=== PATIENT | male | born 2000 | race Caucasian/White ===

== ENCOUNTER 2022-05-28 14:16 | Emergency (ER) | payer MEDICAID ==
[~2022-05-28] VITALS: Ht 182.9 cm; Wt 87.1 kg
[2022-05-28 14:39] VITALS: BP 138/61
--- NOTE | 2022-05-28 14:40 | NUR ---
BIBS W/ C/O LEFT HAND SWELLING. PT STATES LEFT HAND WAS CRUSHED BY A BOX HE WAS CARRYING AT WORK. PT A/O X4, AMBULATORY.
--- NOTE | 2022-05-28 14:50 | NUR ---
DR VICENTE W/ PT FOR EVAL
--- NOTE | 2022-05-28 15:50 | NUR ---
Patient discharged to home in stable condition. Written and verbal after care instructions given. Patient verbalizes understanding of instruction.
== END 2022-05-28 15:51 | disposition home or self-care (01) ==
LOC: ER 14:26
DX: S60.222A Contusion of left hand, initial encounter (principal); W22.8XXA Striking against or struck by other objects, initial encounter; Y93.89 Activity, other specified; Y92.89 Other specified places as the place of occurrence of the external cause; Y99.8 Other external cause status
CPT/HCPCS: 73130-TC

== ENCOUNTER 2022-12-07 11:26 | Emergency (ER) | payer MEDICAID ==
[~2022-12-07] VITALS: Ht 177.8 cm; Wt 88.5 kg
--- NOTE | 2022-12-07 11:35 | NUR ---
BIBS C/O ABDOMINAL PAIN AND NAUSEA STARTED SUNDAY ON AND OFF. PAIN IS WORSE WHEN EATING, DENIES ANY PAIN AT THE MOMENT. VITALS ARE WITHIN NORMAL LIMITS.
[2022-12-07] MEDS ORDERED: FAMOTIDINE/PF INJ 20 MG/2 ML VIAL IV ONE ×2 (11:44→12:00)
[2022-12-07] MEDS ORDERED: ONDANSETRON HCL/PF 4 MG/2 ML VIAL ONE (11:44)
--- NOTE | 2022-12-07 11:48 | NUR ---
TERRI [employer] 20G. LABS COLLECTED AND SENT.
--- NOTE | 2022-12-07 11:52 | NUR ---
ULTRASOUND AT BEDSIDE
--- NOTE | 2022-12-07 11:58 | NUR ---
URINE COLLECTED AND SENT
[2022-12-07] MEDS ORDERED: ONDANSETRON HCL/PF 4 MG/2 ML VIAL IVP ONE (12:00)
[2022-12-07] MEDS ORDERED: IV NS 0.9% 1,000 ML BAG IV ONE (12:00)
[2022-12-07 12:01] LABS: BASOPHILS % (AUTO) 0.4 % (0.0-2.0); EOSINOPHILS % (AUTO) 0.4 % (0.0-6.0); HEMATOCRIT 45 % (39-51); HEMOGLOBIN 14.7 g/dL (13.5-17.5); LYMPHOCYTES # (AUTO) 1.1 K/uL (0.8-4.8); LYMPHOCYTES % (AUTO) 14.2 % (20.0-44.0); MEAN CORPUSCULAR HGB CONC 33 g/dl (31.0-36.0); MEAN CORPUSCULAR VOLUME 82 fL (80-96); MONOCYTES # (AUTO) 0.2 K/uL (0.1-1.30); MONOCYTES % (AUTO) 3.1 % (2.0-12.0); NEUTROPHILS # (AUTO) 6.1 K/uL (1.8-8.9); NEUTROPHILS % (AUTO) 81.9 % (43.0-81.0); PLATELET COUNT (AUTO) 303 K/uL (150-450); RED BLOOD CELL COUNT(AUTO) 5.48 MIL/uL (4.5-6.0); WHITE BLOOD COUNT (AUTO) 7.5 K/uL (4.3-11.0)
[2022-12-07 12:15] LABS: ALBUMIN 4.7 g/dL (3.4-5.0); BILIRUBIN,DIRECT 0.2 mg/dL (0.0-0.2); BILIRUBIN,TOTAL 0.6 mg/dL (0.2-1.0); CALCIUM, SERUM 9.5 mg/dL (8.5-10.1); POTASSIUM 3.8 mmol/L (3.5-5.1); TOTAL PROTEIN, SERUM 8.4 g/dL (6.4-8.2)
[2022-12-07] MEDS ORDERED: FAMO-131 PO (12:41)
--- NOTE | 2022-12-07 12:51 | NUR ---
IV removed. Catheter intact and site benign. Pressure and 4x4 applied to site. No bleeding noted.Patient discharged to home in stable condition. Written and verbal after care instructions given. Patient verbalizes understanding of instruction.
[2022-12-07 12:53] VITALS: BP 129/86
== END 2022-12-07 12:53 | disposition home or self-care (01) ==
LOC: ER 11:32
DX: R10.13 Epigastric pain (principal); R10.11 Right upper quadrant pain; R11.10 Vomiting, unspecified
CPT/HCPCS: 99285; 96374; 76705; 96361; 96375; 85025; 80048; 83690; 80076; 36415; J3490; J2405; J7030

== ENCOUNTER 2022-12-10 07:47 | Emergency (ER) | payer MEDICAID ==
[~2022-12-10] VITALS: Ht 182.9 cm; Wt 87.1 kg
[~2022-12-10 07:47] MED LIST: FAMO-131 PO
--- NOTE | 2022-12-10 08:07 | NUR ---
Urine Sample collected and sent to lab.
--- NOTE | 2022-12-10 08:10 | NUR ---
C/O GENERALIZED ABDOMINAL PAIN, DIARRHEA AND NAUSEA X 2 DAYS.
--- NOTE | 2022-12-10 08:12 | NUR ---
Dr. Ram at bedside.
--- NOTE | 2022-12-10 09:25 | NUR ---
Blood sample collected and sent to lab.
[2022-12-10] MEDS ORDERED: KETOROLAC TROMETHAMINE 15 MG/ML VIAL ONE (09:35)
[2022-12-10] MEDS ORDERED: FAMOTIDINE/PF INJ 20 MG/2 ML VIAL IV ONE (09:35)
[2022-12-10] MEDS: FAMOTIDINE/PF INJ 20 MG/2 ML VIAL IV ONE (09:43)
[2022-12-10] MEDS: KETOROLAC TROMETHAMINE INJ 30 MG/ML VIAL IV ONE (09:45)
[2022-12-10 10:02] LABS: HEMOGLOBIN 13.7 g/dL (13.5-17.5); LYMPHOCYTES # (AUTO) 1.7 K/uL (0.8-4.8); MONOCYTES # (AUTO) 0.4 K/uL (0.1-1.30); NEUTROPHILS # (AUTO) 3.8 K/uL (1.8-8.9)
[2022-12-10 10:06] LABS: BASOPHILS % (AUTO) 0.7 % (0.0-2.0); EOSINOPHILS % (AUTO) 2.5 % (0.0-6.0); HEMATOCRIT 42 % (39-51); LYMPHOCYTES % (AUTO) 28.4 % (20.0-44.0); MEAN CORPUSCULAR HGB CONC 33 g/dl (31.0-36.0); MEAN CORPUSCULAR VOLUME 82 fL (80-96); MONOCYTES % (AUTO) 6.1 % (2.0-12.0); NEUTROPHILS % (AUTO) 62.3 % (43.0-81.0); PLATELET COUNT (AUTO) 266 K/uL (150-450); RED BLOOD CELL COUNT(AUTO) 5.09 MIL/uL (4.5-6.0); WHITE BLOOD COUNT (AUTO) 6.1 K/uL (4.3-11.0)
[2022-12-10] MEDS ORDERED: IOHEXOL-300 100 ML VIAL IV ONE (10:08)
[2022-12-10] MEDS ORDERED: CT SWABBABLE VALVE TRANS SET 1 EA INFUS.SET MC ONE (10:09)
[2022-12-10] MEDS ORDERED: IV NS 0.9% 250 ML IV ONE (10:09)
[2022-12-10 10:12] LABS: CALCIUM, SERUM 9.2 mg/dL (8.5-10.1); POTASSIUM 3.5 mmol/L (3.5-5.1)
[2022-12-10 10:20] LABS: ALBUMIN 4.4 g/dL (3.4-5.0); BILIRUBIN,TOTAL 0.4 mg/dL (0.2-1.0); TOTAL PROTEIN, SERUM 7.7 g/dL (6.4-8.2)
[2022-12-10 10:42] LABS: BILIRUBIN,URINE NEGATIVE (NEGATIVE); COLOR,URINE YELLOW (YELLOW); LEUKOCYTE ESTERASE ,URINE NEGATIVE (NEGATIVE); NITRITE, URINE NEGATIVE (NEGATIVE); PH,URINE 6.5 (5.0-8.0); PROTEIN,URINE NEGATIVE (NEGATIVE); UGLUCOSE NEGATIVE (NEGATIVE); UROBILINOGEN,URINE 0.2 EU/dL (0.2)
[2022-12-10 10:48] LABS: BACTERIA,URINE Rare /HPF (None Seen); RBC,URINE 0-2 /HPF (0-2); SQUAMOUS EPITHELIAL CELL,UR Few /HPF (None Seen); WBC,URINE 0-2 /HPF (0-3)
--- NOTE | 2022-12-10 11:55 | NUR ---
Dr. Ram at bedside for re-eval.
[2022-12-10 12:05] VITALS: BP 125/75
== END 2022-12-10 12:07 | disposition home or self-care (01) ==
LOC: ER 08:01
DX: K57.30 Diverticulosis of large intestine without perforation or abscess without bleeding (principal); R10.30 Lower abdominal pain, unspecified; R16.2 Hepatomegaly with splenomegaly, not elsewhere classified
CPT/HCPCS: 99285; 74177; 96374; 96375; 85025; 83690; 81001; 36415; 80053; J3490; J7050; Q9967; J1885

== ENCOUNTER 2024-05-27 10:19 | Emergency (ER) | payer MEDICAID, OTHER ==
[~2024-05-27] VITALS: Ht 182.9 cm; Wt 90.7 kg
[2024-05-27] MEDS: IV NS 0.9% 1,000 ML BAG IV ONE (11:13)
[2024-05-27 11:16] LABS: BASOPHILS % (AUTO) 0.9 % (0.0-2.0); EOSINOPHILS # (AUTO) 0.1 K/uL (0.0-0.7); EOSINOPHILS % (AUTO) 1.9 % (0.0-6.0); HEMATOCRIT 44 % (39-51); HEMOGLOBIN 14.7 g/dL (13.5-17.5); LYMPHOCYTES # (AUTO) 1.6 K/uL (0.8-4.8); LYMPHOCYTES % (AUTO) 29.6 % (20.0-44.0); MEAN CORPUSCULAR HEMOGLOBIN 27 PG (26.0-33.0); MEAN CORPUSCULAR HGB CONC 34 g/dl (31.0-36.0); MEAN CORPUSCULAR VOLUME 81 fL (80-96); MONOCYTES # (AUTO) 0.3 K/uL (0.1-1.30); MONOCYTES % (AUTO) 5.9 % (2.0-12.0); NEUTROPHILS # (AUTO) 3.4 K/uL (1.8-8.9); NEUTROPHILS % (AUTO) 61.7 % (43.0-81.0); PLATELET COUNT (AUTO) 247 K/uL (150-450); RED CELL DISTRIBUTION WIDTH 13.7 % (11.5-15.0); WHITE BLOOD COUNT (AUTO) 5.5 K/uL (4.3-11.0)
[2024-05-27] MEDS ORDERED: ACETAMINOPHEN 325 MG TABLET ONE (11:16)
[2024-05-27] MEDS ORDERED: METOCLOPRAMIDE HCL 10 MG/2 ML VIAL ONE (11:16)
[2024-05-27] MEDS ORDERED: diphenhydrAMINE HCL 50 MG/ML VIAL ONE (11:17)
[2024-05-27] MEDS: ACETAMINOPHEN 325 MG TABLET PO ONE (11:21)
[2024-05-27] MEDS: diphenhydrAMINE HCL 50 MG/ML VIAL IV ONE (11:21)
[2024-05-27] MEDS: METOCLOPRAMIDE HCL 10 MG/2 ML VIAL IV ONE (11:21)
[2024-05-27 11:23] LABS: CALCIUM, SERUM 9.2 mg/dL (8.5-10.1); CREATININE 0.9 mg/dL (0.6-1.3); POTASSIUM 4.2 mmol/L (3.5-5.1)
[2024-05-27] MEDS ORDERED: IV NS 0.9% 250 ML IV ONE (13:52)
[2024-05-27] MEDS ORDERED: CT SWABBABLE VALVE TRANS SET 1 EA INFUS.SET MC ONE (13:52)
[2024-05-27] MEDS ORDERED: IOHEXOL-350 100 ML VIAL IV ONE (13:52)
[2024-05-27 18:39] VITALS: BP 130/78; TEMP 98.4; O2SAT 99
== END 2024-05-27 16:00 | disposition home or self-care (01) ==
LOC: ER 10:22
DX: R51.9 Headache, unspecified (principal)
CPT/HCPCS: 99285; 70450; 96374; 96375; 70498; 85025; 80048; 36415; J1200; J2765; J7050; Q9967